=== PATIENT | female | born 1990 | race Hispanic/Latino ===

== ENCOUNTER 2023-03-12 02:52 | Emergency (ER) | payer OTHER ==
[2023-03-12] MEDS ORDERED: Ondansetron PF 4 MG/2 ML Vial ONE (03:18)
== END 2023-03-12 04:56 | disposition home or self-care (01) ==
LOC: CSHERS 02:52
DX: F10.129 Alcohol abuse with intoxication, unspecified (principal)
CPT/HCPCS: 96374; J2405